=== PATIENT | female | born 1950 | race Caucasian/White ===

== ENCOUNTER 2021-08-09 17:51 | Inpatient (IN) | payer MEDICARE, SELFPAY ==
--- NOTE | 2021-08-09 17:56 | XRR_ITS ---
PROCEDURE INFORMATION: Exam: XR Left Femur Exam date and time: 08/09/2021 5:56 PM Age: 70 years old Clinical indication: Injury or trauma; Fall; Blunt trauma; Injury date: 08/09/2021; Patient HX: Left hip deformity; Additional info: Deformity/pain/trauma TECHNIQUE: Imaging protocol: XR Left femur. Views: 2 views. COMPARISON: No relevant prior studies available. FINDINGS: Bones/joints: Proximal femoral diaphysis subtrochanteric fracture with some overlap of the fracture fragments and angulation along with some sclerosis, prominent trabeculation and mild periosteal reaction of the underlying femur, possibly reflecting underlying Paget's disease or metastatic disease. Soft tissues: Unremarkable. XR/XR femur LT min 2V* [id number] IMPRESSION: Proximal femoral diaphysis subtrochanteric fracture with some overlap of the fracture fragments and angulation along with some sclerosis, prominent trabeculation and mild periosteal reaction of the underlying femur, possibly reflecting underlying Paget's disease or metastatic disease.
--- NOTE | 2021-08-09 17:56 | XRR_ITS ---
PROCEDURE INFORMATION: Exam: XR Chest Exam date and time: 08/09/2021 5:56 PM Age: 70 years old Clinical indication: Smoker's cough; Patient HX: HX breast cancer; Additional info: Dyspnea/cough TECHNIQUE: Imaging protocol: XR of the chest. Views: 1 view. COMPARISON: No relevant prior studies available. FINDINGS: Lungs: Unremarkable. No consolidation. Pleural spaces: Unremarkable. No pleural effusion. No pneumothorax. Heart/Mediastinum: Cardiomegaly. Bones/joints: Unremarkable. Soft tissues: Right axillary surgical clips. XR/XR chest 1V portable [id number] IMPRESSION: 1. Negative for infiltrate 2. Cardiomegaly. 3. Right axillary surgical clips.
--- NOTE | 2021-08-09 17:56 | ECG_ITS ---
[facility] Test Date: 2021-08-09 Pat Name: Cira Barney Department: Room: Gender: Female Generator Man: : 1950 Requested By: Micheal Guy Order Number: [id number] Reading MD: CHRISTINA CHRISTIE Measurements Intervals [place] Rate: 68 P: 49 MT: 144 QRS: -23 QRSD: 71 T: 9 QT: 393 QTc: 419 Interpretive Statements SINUS RHYTHM BORDERLINE LEFT AXIS DEVIATION [QRS AXIS < -20] POSSIBLE RIGHT VENTRICULAR CONDUCTION DELAY [RSR (QR) IN V1/V2] MODERATE VOLTAGE CRITERIA FOR LVH, CONSIDER NORMAL VARIANT [MEETS CRITERIA IN ONE OF: R(aVL), S(V1), R(V5), R(V5/V6)+S(V1)] No previous ECG available for comparison Electronically Signed On 08-09-2021 20:02:34 CDT by CHRISTINA CHRISTIE [id number]
--- NOTE | 2021-08-09 17:56 | XRR_ITS ---
PROCEDURE INFORMATION: Exam: XR Pelvis Exam date and time: 08/09/2021 5:56 PM Age: 70 years old Clinical indication: Injury or trauma; Blunt trauma (contusions or hematomas); Left; Hip; Injury date: 08/09/2021; Injury details: Fall today; Additional info: Pain/fall TECHNIQUE: Imaging protocol: XR pelvis. Views: 1 or 2 view. COMPARISON: No relevant prior studies available. FINDINGS: Bones/joints: Left proximal femoral diaphysis sub trochanter fracture with angulation and approximately 1 quarter shaft displacement. The underlying left femur appears somewhat sclerotic with some periosteal reaction and trabecular thickening, perhaps reflecting underlying Paget's disease, however, metastatic disease is not excluded. Soft tissues: Unremarkable. XR/XR pelvis 1-2V* [id number] IMPRESSION: Left proximal femoral diaphysis sub trochanter fracture with angulation and approximately 1 quarter shaft displacement. The underlying left femur appears somewhat sclerotic with some periosteal reaction and trabecular thickening, perhaps reflecting underlying Paget's disease, however, metastatic disease is not excluded.
--- NOTE | 2021-08-09 17:59 | ED_ITS ---
Documented by User: Micheal Keen DO 08/11/21 16:59 HPI - Fall General: Chief Complaint: Fall Stated Complaint: POSSIBLE HIP FRACTURE Time Seen by Provider: 08/09/21 17:52 History of Present Illness: HPI Narrative: 70-year-old female who fell while at home she was stepping over an object lost her balance and fell on her left side she has an obvious deformity of the left proximal femur with significant shortening shortening and external rotation she denies any other injuries not strike her head did not lose consciousness. She not on any blood thinners. complaint: fall Onset (ago): minute(s) Fall from: standing Place fall occurred: home Loss of consciousness: None Prolonged down time: no Symptoms prior to fall: none Context: tripped/slipped Location of injury - extremities: Left: thigh Severity: severe Quality: sharp Associated symptoms-after fall: Denies abdominal pain, chest pain, confusion, difficulty walking, headache(s), hematuria, lightheadedness, neck pain, numbness, short of breath, vertigo or weakness Review of Systems Const: Denies: fever(s), chills, body aches, change in appetite, fatigue or malaise ENMT: Denies: throat pain, ear or mastoid pain, nasal discharge or nasal congestion Card: Denies: chest pain or lightheadedness Resp: Denies: dyspnea, productive cough or non-productive cough GI: Denies: abdominal pain : Denies: hematuria Musc: Denies: neck pain Skin/Breast: Denies: rash or pruritus Neuro: Denies: headache(s), difficulty walking, vertigo or confusion [facility] PFSH: Medical History (Updated 08/10/21 @ 16:22 by Armida Rosado MD) Breast cancer Physical Exam Const: COMMON NORMALS: no acute distress GENERAL APPEARANCE: cooperative and comfortable ORIENTATION/CONSCIOUSNESS: Yes awake, Yes oriented to person, Yes oriented to place and Yes oriented to time HENMT: COMMON NORMALS: normocephalic, atraumatic and hearing grossly normal bilaterally HEAD & SCALP: normocephalic and atraumatic Neck/C-Spine: COMMON NORMALS: no JVD Resp: COMMON NORMALS: normal respiratory effort, No retractions, No use of accessory muscles and clear to auscultation bilaterally AUSCULTATION: clear to auscultation bilaterally Cardio: COMMON NORMALS: no JVD, regular rate, regular rhythm and No murmurs present (Cardio) RATE: regular rate RHYTHM: regular rhythm GI: COMMON NORMALS: Soft to palpation and No hepatosplenomegaly present AUSCULTATION: Yes normoactive bowel sounds PALPATION: Yes Soft to palpation, No Tenderness to palpation present (GI), No Guarding due to palpation present (GI) and Yes No hepatosplenomegaly present Extremity: COMMON NORMALS: normal to inspection, capillary refill normal, no clubbing, cyanosis or edema, no calf tenderness and no pedal edema OTHER: Obvious deformity left femur with significant shortening of the left leg and external rotation. Appears to have a proximal humerus fracture. Neuro: SENSORIUM/ORIENTATION: Yes oriented to person, Yes oriented to place and Yes oriented to time Skin: COMMON NORMALS: no rashes or lesions noted GENERAL SKIN EXAM: no rashes or lesions noted Course Vital Signs: Vital signs: Vital Signs Temperature 97.9 F 08/11/21 15:28 Pulse Rate 86 08/11/21 15:28 Respiratory Rate 18 08/11/21 15:28 Blood Pressure 117/71 08/11/21 15:28 Pulse Oximetry 92 08/11/21 15:28 MDM - Fall MDM Narrative: Medical decision making narrative: Care turned over to Dr. Springer at change of shift see his note from diagnosis and disposition Lab Data: Labs: Lab Results 08/09/21 08/09/21 08/09/21 18:01 18:25 18:25 WBC 5.8 10^3/uL 10^3/ uL (4.0-10.0) RBC 4.17 10^6/uL 10^6 /uL (4.1-5.3) Hgb 13.0 g/dL g/dL (11.5-15.3) Hct 39.2 % % (37.0-47.0) MCV 94.0 fl fl (81-99) MCH 31.2 pg pg (28.0-34.0) MCHC 33.2 g/dL g/dL (30.0-36.0) RDW 13.8 % % (12.1-15.1) Plt Count 228 10^3/cmm 10^3 /cmm (130-400) MPV 11.2 fL H fL (7.4-10.4) Neut % (Auto) 65.9 % % Lymph % (Auto) 25.1 % % [place] % (Auto) 7.6 % % Eos % (Auto) 0.7 % % Baso % (Auto) 0.5 % % Neut # (Auto) 3.83 10^3/uL 10^3 /uL (1.8-7.7) Lymph # (Auto) 1.5 10^3/uL 10^3/ uL (0.8-4.8) [place] # (Auto) 0.4 10^3/uL 10^3/ uL (0.2-0.9) Eos # (Auto) 0.0 10^3/uL 10^3/ uL (0.0-0.8) Baso # (Auto) 0.0 10^3/uL 10^3/ uL (0.0-0.1) Nucleated RBC % (a uto) 0 % % Nucleated RBCs # 0.0 /100WBC /100W BC PT INR APTT Sodium 137 mmol/L mmol/L (136-145) Potassium 4.6 mmol/L mmol/L (3.5-5.1) Chloride 101 mmol/L mmol/L (98-107) Carbon Dioxide 27 mmol/L mmol/L (22-29) Anion Gap 13.6 (5-19) BUN 21 mg/dL mg/dL (8-23) Creatinine 0.6 mg/dL mg/dL (0.5-0.9) GFR Calculation Not Reportable Glucose 107 mg/dL mg/dL (65-115) Calculated Osmolal ity 287 mOsm/kg mOsm/ kg (285-295) Calcium 8.7 mg/dL mg/dL (8.5-10.5) Total Bilirubin 0.3 mg/dL mg/dL (0.15-1.2) AST 28 U/L U/L (0-32) ALT 11 U/L U/L (0-33) Alkaline Phosphata se 97 IU/L IU/L (35-105) Total Protein 6.5 g/dL L g/dL (6.6-8.7) Albumin 3.8 g/dL g/dL (3.5-5.2) Globulin 2.7 g/dL g/dL (1.3-4.6) Urine Color Yellow (Yellow) Urine Appearance Hazy A (CLEAR) Urine pH 7 (5-7) Ur Specific Gravit y 1.010 (1.005-1.030) Urine Protein Neg (Negative) Urine Glucose (UA) Norm (Normal) Urine Ketones 1+ H (Negative) Urine Blood Neg (Negative) Urine Nitrate Negative (Negative) Urine Bilirubin Neg (Negative) Urine Urobilinogen 1 mg/dL H mg/dL (Negative) Ur Leukocyte Afshan ase Negative (Negative) Urine RBC 0-4 /hpf H /hpf (0-2) Urine WBC 0-4 /hpf H /hpf (0-5) Ur Squamous Epith Cells 0-4 /hpf H /hpf (0-5) Ur Transition Epit h Cell 0-4 /hpf /hpf Amorphous Sediment 1+ /hpf /hpf Urine Bacteria Trace /hpf /hpf (NONE) Urine Mucus 1+ /hpf /hpf 08/09/21 18:25 WBC RBC Hgb Hct MCV MCH MCHC RDW Plt Count MPV Neut % (Auto) Lymph % (Auto) [place] % (Auto) Eos % (Auto) Baso % (Auto) Neut # (Auto) Lymph # (Auto) [place] # (Auto) Eos # (Auto) Baso # (Auto) Nucleated RBC % (a uto) Nucleated RBCs # PT 12.70 SECONDS SEC ONDS (12.1-14.9) INR 0.93 (0.8-1.2) APTT 27.8 SECONDS SECO NDS (23.9-36.7) Sodium Potassium Chloride Carbon Dioxide Anion Gap BUN Creatinine GFR Calculation Glucose Calculated Osmolal ity Calcium Total Bilirubin AST ALT Alkaline Phosphata se Total Protein Albumin Globulin Urine Color Urine Appearance Urine pH Ur Specific Gravit y Urine Protein Urine Glucose (UA) Urine Ketones Urine Blood Urine Nitrate Urine Bilirubin Urine Urobilinogen Ur Leukocyte Afshan ase Urine RBC Urine WBC Ur Squamous Epith Cells Ur Transition Epit h Cell Amorphous Sediment Urine Bacteria Urine Mucus Discharge Plan Discharge Patient Disposition: Admitted As Inpatient Admit Provider: Agnes Pagan Clinical Impression: Fracture, proximal femur Condition: Stable Discharge Diet: Advance as tolerated Sign Out Sign Out Data: Patient Sign Out occurred on 08/09/21 at 18:16. Patient's care was discussed, and care was transferred from to Je Springer MD. Coding Level of Care Code ED Campaign Worker for Chg Fwd Exam Comprehensive Documented by User: Je Springer MD 08/10/21 05:18 HPI - Fall General: Chief Complaint: Fall Stated Complaint: POSSIBLE HIP FRACTURE Time Seen by Provider: 08/09/21 17:52 PFSH ED PFSH: Medical History (Updated 08/10/21 @ 16:22 by Armida Rosado MD) Breast cancer Course Vital Signs: Vital signs: Vital Signs Temperature 97.9 F 08/11/21 15:28 Pulse Rate 86 08/11/21 15:28 Respiratory Rate 18 08/11/21 15:28 Blood Pressure 117/71 08/11/21 15:28 Pulse Oximetry 92 08/11/21 15:28 MDM - Fall MDM Narrative: Medical decision making narrative: 70F presents the emergency room after an episode of fall with left thigh swelling deformity. Neurovascular exam intact. Facial proximal femur fracture. Case was discussed with Dr. Griffith plans for admission and possible surgery. Disposition: Admission Lab Data: Labs: Lab Results 08/09/21 08/09/21 08/09/21 18:01 18:25 18:25 WBC 5.8 10^3/uL 10^3/ uL (4.0-10.0) RBC 4.17 10^6/uL 10^6 /uL (4.1-5.3) Hgb 13.0 g/dL g/dL (11.5-15.3) Hct 39.2 % % (37.0-47.0) MCV 94.0 fl fl (81-99) MCH 31.2 pg pg (28.0-34.0) MCHC 33.2 g/dL g/dL (30.0-36.0) RDW 13.8 % % (12.1-15.1) Plt Count 228 10^3/cmm 10^3 /cmm (130-400) MPV 11.2 fL H fL (7.4-10.4) Neut % (Auto) 65.9 % % Lymph % (Auto) 25.1 % % [place] % (Auto) 7.6 % % Eos % (Auto) 0.7 % % Baso % (Auto) 0.5 % % Neut # (Auto) 3.83 10^3/uL 10^3 /uL (1.8-7.7) Lymph # (Auto) 1.5 10^3/uL 10^3/ uL (0.8-4.8) [place] # (Auto) 0.4 10^3/uL 10^3/ uL (0.2-0.9) Eos # (Auto) 0.0 10^3/uL 10^3/ uL (0.0-0.8) Baso # (Auto) 0.0 10^3/uL 10^3/ uL (0.0-0.1) Nucleated RBC % (a uto) 0 % % Nucleated RBCs # 0.0 /100WBC /100W BC PT INR APTT Sodium 137 mmol/L mmol/L (136-145) Potassium 4.6 mmol/L mmol/L (3.5-5.1) Chloride 101 mmol/L mmol/L (98-107) Carbon Dioxide 27 mmol/L mmol/L (22-29) Anion Gap 13.6 (5-19) BUN 21 mg/dL mg/dL (8-23) Creatinine 0.6 mg/dL mg/dL (0.5-0.9) GFR Calculation Not Reportable Glucose 107 mg/dL mg/dL (65-115) Calculated Osmolal ity 287 mOsm/kg mOsm/ kg (285-295) Calcium 8.7 mg/dL mg/dL (8.5-10.5) Total Bilirubin 0.3 mg/dL mg/dL (0.15-1.2) AST 28 U/L U/L (0-32) ALT 11 U/L U/L (0-33) Alkaline Phosphata se 97 IU/L IU/L (35-105) Total Protein 6.5 g/dL L g/dL (6.6-8.7) Albumin 3.8 g/dL g/dL (3.5-5.2) Globulin 2.7 g/dL g/dL (1.3-4.6) Urine Color Yellow (Yellow) Urine Appearance Hazy A (CLEAR) Urine pH 7 (5-7) Ur Specific Gravit y 1.010 (1.005-1.030) Urine Protein Neg (Negative) Urine Glucose (UA) Norm (Normal) Urine Ketones 1+ H (Negative) Urine Blood Neg (Negative) Urine Nitrate Negative (Negative) Urine Bilirubin Neg (Negative) Urine Urobilinogen 1 mg/dL H mg/dL (Negative) Ur Leukocyte Afshan ase Negative (Negative) Urine RBC 0-4 /hpf H /hpf (0-2) Urine WBC 0-4 /hpf H /hpf (0-5) Ur Squamous Epith Cells 0-4 /hpf H /hpf (0-5) Ur Transition Epit h Cell 0-4 /hpf /hpf Amorphous Sediment 1+ /hpf /hpf Urine Bacteria Trace /hpf /hpf (NONE) Urine Mucus 1+ /hpf /hpf 08/09/21 18:25 WBC RBC Hgb Hct MCV MCH MCHC RDW Plt Count MPV Neut % (Auto) Lymph % (Auto) [place] % (Auto) Eos % (Auto) Baso % (Auto) Neut # (Auto) Lymph # (Auto) [place] # (Auto) Eos # (Auto) Baso # (Auto) Nucleated RBC % (a uto) Nucleated RBCs # PT 12.70 SECONDS SEC ONDS (12.1-14.9) INR 0.93 (0.8-1.2) APTT 27.8 SECONDS SECO NDS (23.9-36.7) Sodium Potassium Chloride Carbon Dioxide Anion Gap BUN Creatinine GFR Calculation Glucose Calculated Osmolal ity Calcium Total Bilirubin AST ALT Alkaline Phosphata se Total Protein Albumin Globulin Urine Color Urine Appearance Urine pH Ur Specific Gravit y Urine Protein Urine Glucose (UA) Urine Ketones Urine Blood Urine Nitrate Urine Bilirubin Urine Urobilinogen Ur Leukocyte Afshan ase Urine RBC Urine WBC Ur Squamous Epith Cells Ur Transition Epit h Cell Amorphous Sediment Urine Bacteria Urine Mucus Imaging Data^: Other Imaging: Radiologist's impression: [address] [id number] ReportSigned Patient: Kevyn Barney #: [id number]: [id number]#:[id number]/Sex: 70 / FADM Date: 08/09/21Loc: ERRoom/Bed:Attending Dr: Ordering Provider/Ordering MD: Micheal Keen DO Date of Service: 08/09/21 Procedure(s): XR pelvis 1-2V* 28884 Accession Number(s): [id number] Report Number: [id number] PROCEDURE INFORMATION: Exam: XR Pelvis Exam date and time: 08/09/2021 5:56 PM Age: 70 years old Clinical indication: Injury or trauma; Blunt trauma (contusions or hematomas); Left; Hip; Injury date: 08/09/2021; Injury details: Fall today; Additional info: Pain/fall TECHNIQUE: Imaging protocol: XR pelvis. Views: 1 or 2 view. COMPARISON: No relevant prior studies available. FINDINGS: Bones/joints: Left proximal femoral diaphysis sub trochanter fracture with angulation and approximately 1 quarter shaft displacement. The underlying left femur appears somewhat sclerotic with some periosteal reaction and trabecular thickening, perhaps reflecting underlying Paget's disease, however, metastatic disease is not excluded. Soft tissues: Unremarkable. XR/XR pelvis 1-2V* 58408 IMPRESSION: Left proximal femoral diaphysis sub trochanter fracture with angulation and approximately 1 quarter shaft displacement. The underlying left femur appears somewhat sclerotic with some periosteal reaction and trabecular thickening, perhaps reflecting underlying Paget's disease, however, metastatic disease is not excluded. Dictated By:Gavin Harden MDSigned By:Gavin Harden MDSigned Date/Time:08/09/211844DD/ [address] [address]XLxl ReportSigned Patient: Kevyn Barney #: [id number]: 1950cct#:[id number]/Sex: 70 / FADM Date: 08/09/21Loc: ERRoom/Bed:Attending Dr: Ordering Provider/Ordering MD: Micheal Keen DO Date of Service: 08/09/21 Procedure(s): XR femur LT min 2V* [id number] Accession Number(s): [id number] Report Number: [id number] PROCEDURE INFORMATION: Exam: XR Left Femur Exam date and time: 08/09/2021 5:56 PM Age: 70 years old Clinical indication: Injury or trauma; Fall; Blunt trauma; Injury date: 08/09/2021; Patient HX: Left hip deformity; Additional info: Deformity/pain/trauma TECHNIQUE: Imaging protocol: XR Left femur. Views: 2 views. COMPARISON: No relevant prior studies available. FINDINGS: Bones/joints: Proximal femoral diaphysis subtrochanteric fracture with some overlap of the fracture fragments and angulation along with some sclerosis, prominent trabeculation and mild periosteal reaction of the underlying femur, possibly reflecting underlying Paget's disease or metastatic disease. Soft tissues: Unremarkable. XR/XR femur LT min 2V* [id number] IMPRESSION: Proximal femoral diaphysis subtrochanteric fracture with some overlap of the fracture fragments and angulation along with some sclerosis, prominent trabeculation and mild periosteal reaction of the underlying femur, possibly reflecting underlying Paget's disease or metastatic disease. Dictated By:Gavin Harden MDSigned By:Gavin Harden MDSigned Date/Time:08/09/211846DD/ [address] [address]DDki ReportSigned Patient: Kevyn Barney #: [id number]: 1950cct#:[id number]/Sex: 70 / FADM Date: 08/09/21Loc: ERRoom/Bed:At [facility] Dr: Ordering Provider/Ordering MD: Micheal Keen DO Date of Service: 08/09/21 Procedure(s): XR chest 1V portable [id number] Accession Number(s): [id number] Report Number: [id number] PROCEDURE INFORMATION: Exam: XR Chest Exam date and time: 08/09/2021 5:56 PM Age: 70 years old Clinical indication: Smoker's cough; Patient HX: HX breast cancer; Additional info: Dyspnea/cough TECHNIQUE: Imaging protocol: XR of the chest. Views: 1 view. COMPARISON: No relevant prior studies available. FINDINGS: Lungs: Unremarkable. No consolidation. Pleural spaces: Unremarkable. No pleural effusion. No pneumothorax. Heart/Mediastinum: Cardiomegaly. Bones/joints: Unremarkable. Soft tissues: Right axillary surgical clips. XR/XR chest 1V portable [id number] IMPRESSION: 1. Negative for infiltrate 2. Cardiomegaly. 3. Right axillary surgical clips. Dictated By:Gavin Harden MDSigned By:Gavin Harden MDSigned Date/Time:08/09/211845DD/ 44 Discharge Plan Discharge Patient Disposition: Admitted As Inpatient Admit Provider: Agnes Pagan Clinical Impression: Fracture, proximal femur Condition: Stable Discharge Diet: Advance as tolerated Sign Out Sign Out Data: Patient Sign Out occurred on 08/09/21 at 18:16. Patient's care was discussed, and care was transferred from to Je Springer MD. Coding Level of Care Code ED Campaign Worker for Chg Fwd Exam Comprehensive
[2021-08-09 18:00] VITALS: BP 151/74; PULSE 71; RESP 18; TEMP 37.2; O2SAT 96; BMI 22.4
[2021-08-09 18:32] LABS: Basophils % 0.5 %; Eosinophils % 0.7 %; Hematocrit 39.2 % (37.0-47.0); Lymphocytes # 1.5 10^3/uL (0.8-4.8); Lymphocytes % 25.1 %; Mean Corpuscular HGB Conc 33.2 g/dL (30.0-36.0); Mean Corpuscular Hemoglobin 31.2 pg (28.0-34.0); Mean Platelet Volume 11.2 fL (7.4-10.4); Monocytes # 0.4 10^3/uL (0.2-0.9); Monocytes % 7.6 %; Neutrophils # 3.83 10^3/uL (1.8-7.7); Neutrophils % 65.9 %; Nucleated Red Blood Cells % 0 %; Platelet Count 228 10^3/cmm (130-400); Red Blood Count 4.17 10^6/uL (4.1-5.3); Red Cell Distribution Width 13.8 % (12.1-15.1); White Blood Count 5.8 10^3/uL (4.0-10.0)
[2021-08-09 18:59] VITALS: BP 151/74
[2021-08-09 19:03] LABS: Alanine Aminotransferase 11 U/L (0-33); Albumin Level 3.8 g/dL (3.5-5.2); Alkaline Phosphatase 97 IU/L (35-105); Blood Urea Nitrogen 21 mg/dL (8-23); Calcium 8.7 mg/dL (8.5-10.5); Carbon Dioxide 27 mmol/L (22-29); Chloride 101 mmol/L (98-107); Globulin 2.7 g/dL (1.3-4.6); Glucose 107 mg/dL (65-115); Osmolality Calculated 287 mOsm/kg (285-295); Sodium 137 mmol/L (136-145); Total Bilirubin 0.3 mg/dL (0.15-1.2); Total Protein 6.5 g/dL (6.6-8.7)
[2021-08-09 19:05] LABS: Anion Gap 13.6 (5-19); Aspartate Amino Transferase 28 U/L (0-32); Potassium 4.6 mmol/L (3.5-5.1)
[2021-08-09 19:07] VITALS: RESP 97
[2021-08-09] MEDS: morphine 4 mg/mL SDV 1 mL IVP (19:07)
[2021-08-09 19:18] LABS: Urine Appearance Hazy (CLEAR); Urine Color Yellow (Yellow)
[2021-08-09 19:19] LABS: Add Urine Microscopic? YES; Bilirubin Urine Neg (Negative); Blood Urine Neg (Negative); Glucose Urine UA Norm (Normal); Ketones Urine 1+ (Negative); Leukocyte Esterase Urine Negative (Negative); Nitrate Urine Negative (Negative); Protein Urine Neg (Negative); RBC Urine 0-4 /hpf (0-2); Squamous Epithelial Cell Urine 0-4 /hpf (0-5); Transitional Epi Cells Urine 0-4 /hpf; Urobilinogen Urine 1 mg/dL (Negative); WBC Urine 0-4 /hpf (0-5); pH Urine 7 (5-7)
[2021-08-09 19:20] LABS: Add Urine Culture? No; Amorphous Sediment Urine 1+ /hpf; Bacteria Urine TRACE /hpf; Mucus Urine 1+ /hpf
--- NOTE | 2021-08-09 19:30 | ECG_ITS ---
[facility] Test Date: 2021-08-09 Pat Name: Cira Barney Department: Room: 253 Gender: Female Invas Tech: : 1950 Requested By: Je Springer Order Number: [id number] Celsa MD: Elisabeth Galo M.D. Measurements Intervals [place] Rate: 64 P: 41 MI: 168 QRS: -23 QRSD: 84 T: -3 QT: 432 QTc: 448 Interpretive Statements SINUS RHYTHM BORDERLINE LEFT AXIS DEVIATION [QRS AXIS < -20] POSSIBLE RIGHT VENTRICULAR CONDUCTION DELAY [RSR (QR) IN V1/V2] VOLTAGE CRITERIA FOR LVH [MEETS CRITERIA IN ONE OF: R(aVL), S(V1), R(V5), R(V5/V6)+S(V1)] Compared to ECG 08/09/2021 18:37:28 No significant changes Electronically Signed On 08-10-2021 21:27:58 CDT by Elisabeth Galo M.D. [id number]
[2021-08-09 20:25] LABS: INR 0.93 (0.8-1.2)
[2021-08-09 20:28] LABS: Partial Thromboplastin Time 27.8 SECONDS (23.9-36.7)
[2021-08-09] MEDS: HYDROmorphone 1 mg/mL INJ 1 mL 0.5 MG IVP ×2 (20:40→21:30)
[2021-08-09 20:42] VITALS: BP 135/73; PULSE 73; RESP 19; O2SAT 96
[2021-08-09 21:54] VITALS: BP 141/76; PULSE 74; O2SAT 98
[2021-08-09] MEDS: ondansetron 2 mg/ML SDV 2 mL 4 MG IVP (22:28)
[2021-08-09 22:49] VITALS: BP 147/80; PULSE 62; RESP 18; TEMP 36.3; O2SAT 94
--- NOTE | 2021-08-09 23:32 | PC.NURSE ---
Pt arrived to unit at 2245 with granddaughter, Yokasta, at bedside. Requesting to be notified of any changes. Number [phone].
--- NOTE | 2021-08-09 23:46 | PM.HP ---
Providers/Chief Complaint Admitting Physician: Agnes Pagan Chief Complaint: POSSIBLE HIP FRACTURE History of Present Illness Cira Barney is a 70 year old female with past medical history of restless leg syndrome who fell after her leg gave way. Noted to have left lower extremity pain afterwards. No head trauma, no chest pain or dyspnea. no fever or chills. Found to have a left hip fx on arrival. Review of Systems General: Reports: 10 or more systems reviewed and unremarkable except in HPI and below Medications/Allergies Home Medications Medication Instructions Recorded Confirmed Last Taken Type ropinirole 0.5 mg 08/09/21 08/08/21 22:00 History Allergies Allergy/AdvReac Type Severity Reaction Status Date / Time No Known Drug Allergies Allergy Unknown Verified 08/09/21 22:51 Vitals/I&O/Wt Last Vital Signs Temp 97.4 F L 08/09/21 22:49 Pulse 62 08/09/21 22:49 Resp 18 08/09/21 22:49 BP 147/80 08/09/21 22:49 Pulse Ox 94 08/09/21 22:49 Weight last 48 hrs Weight 57.606 kg Physical Exam Narrative: EXAM NARRATIVE: General: Alert, awake HEENT: EOMI CVS: RRR CHEST ; non-labored respiration ABD soft,nt/nd Ext No edema Urinary Catheter Management^: [place]: Cath Placed During This Visit: no Data : 08/10/21 04:49 08/10/21 04:49 A&P Assessment and plan (1) Fracture, proximal femur: Ortho if avaiable Pain control NPO IVF AM labs No indication for further cardiac work up Status: Acute Attestations Medical Necessity Statement*: over 2 midnight stay in hospital for eval and treatment. Time Spent in Patient Care: Greater than 35 minutes (>than 50% of time spent in counselling and/or direct pt care on unit). Coding Level of Care Code Acute Customer Support Consultant for Davonte Caraballo Diagnoses Fracture, proximal femur S72.009A
[2021-08-10] VITALS (16 sets, daily range): BP systolic 119–144; BP diastolic 63–85; PULSE 65–107; RESP 16–20; TEMP 35.5–37.4; O2SAT 92–98
--- NOTE | 2021-08-10 | XR_ITS ---
WS: [id number] Exam: XR femur LT min 2V* [id number] Date/Time of Exam: 08/10/2021 12:00 AM Reason For Exam: gamma nail There is internal orthopedic fixation involving a transverse fracture through the subtrochanteric reg ion of the left femur. An intramedullary skyler and femoral neck screw stabilize the fracture in the sat isfactory position for healing. Postoperative changes in the adjacent soft tissues. XR/XR femur LT min 2V* 57060 IMPRESSION: 1. Satisfactory ORIF involving a subtrochanteric fracture of the left femur.
--- NOTE | 2021-08-10 | SCC_ITS ---
Procedure Done: Open reduction and internal fixation left proximal femur with intramedullary device 75.2 seconds of fluoroscopic guidance, for a cumulative dose of 7.31 mGy, was provided to Dr. Ortiz by the radiology department. C-arm images of the LEFT femur were saved for the patient's permanent record. [facility]
[2021-08-10] MEDS: sodium chloride 0.9% 1,000 ML 50 ML IV (02:58)
[2021-08-10] MEDS: morphine 4 mg/mL SDV 1 mL 2 MG IVP ×2 (03:52→08:08)
[2021-08-10 05:33] LABS: Basophils % 0.4 %; Hematocrit 37.7 % (37.0-47.0); Hemoglobin 12.1 g/dL (11.5-15.3); Lymphocytes # 1.4 10^3/uL (0.8-4.8); Lymphocytes % 19.6 %; Mean Corpuscular HGB Conc 32.1 g/dL (30.0-36.0); Mean Corpuscular Hemoglobin 30.6 pg (28.0-34.0); Mean Corpuscular Volume 95.4 fl (81-99); Mean Platelet Volume 11.6 fL (7.4-10.4); Monocytes # 0.5 10^3/uL (0.2-0.9); Neutrophils # 5.21 10^3/uL (1.8-7.7); Neutrophils % 72.7 %; Nucleated Red Blood Cells % 0 %; Platelet Count 203 10^3/cmm (130-400); Red Blood Count 3.95 10^6/uL (4.1-5.3); Red Cell Distribution Width 13.7 % (12.1-15.1); White Blood Count 7.2 10^3/uL (4.0-10.0)
[2021-08-10 05:50] LABS: Alanine Aminotransferase 9 U/L (0-33); Albumin Level 3.5 g/dL (3.5-5.2); Alkaline Phosphatase 88 IU/L (35-105); Anion Gap 12.4 (5-19); Aspartate Amino Transferase 24 U/L (0-32); Blood Urea Nitrogen 20 mg/dL (8-23); Calcium 8.7 mg/dL (8.5-10.5); Carbon Dioxide 26 mmol/L (22-29); Chloride 102 mmol/L (98-107); Globulin 2.2 g/dL (1.3-4.6); Glucose 112 mg/dL (65-115); Osmolality Calculated 285 mOsm/kg (285-295); Potassium 4.4 mmol/L (3.5-5.1); Sodium 136 mmol/L (136-145); Total Bilirubin 0.4 mg/dL (0.15-1.2); Total Protein 5.7 g/dL (6.6-8.7)
[2021-08-10] MEDS: acetaminophen 325 mg Tablet 650 MG PO (06:28)
--- NOTE | 2021-08-10 07:59 | P.PN_ITS ---
Subjective Subjective: Interval history: Patient was seen and examined this morning in presence of her granddaughter. She reports history of weight loss in the last 2 to 3 months. She has lost around 30 pounds. There is also a history of hemorrhoids that she reports. She has a history of breast cancer 20 years ago which was treated with a lumpectomy radiation and chemo. She considers herself healthy and does not take any medications. She denies having a DEXA bone scan recently. He states he was supposed to have a colonoscopy since he had developed some GI issues but it was delayed due to Covid. She also states that she has been tired lately. 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 She went there after a long time for 2 3 hours yesterday when she experienced weakness and states her leg gave out and she fell. She presented to the ER with a hip fracture. She does have a primary care physician Masoud Aleman in couple months already. She denies blood in the stool, abdominal pain, chest pain, shortness of breath. She denies smoking and denies alcohol use or any other illicit drug use. Patient was interviewed in presence of Dr. Ortiz orthopedic surgeon. She will be going for orthopedic surgery today. Vitals/I&O/Wt Last Vital Signs Temp 96 F L 08/10/21 06:00 Pulse 73 08/10/21 06:00 Resp 16 08/10/21 06:00 BP 121/73 08/10/21 06:00 Pulse Ox 98 08/10/21 06:00 08/09/21 08/10/21 08/10/21 22:59 06:59 14:59 Output Total 400 / 400 Balance -400 / -400 Weight last 48 hrs Weight 57.606 kg Physical Exam Narrative: EXAM NARRATIVE: General: Alert oriented x3, patient seen laying in bed, granddaughter present at bedside. Frail-appearing elderly female appearing cachectic. HEENT: Normocephalic, atraumatic, EOMI, Cardio: Regular rate rhythm, normal S1-S2, no murmurs rubs gallops, Respiratory: Good bilateral air entry, no wheezes no rhonchi appreciated GI: Abdomen soft, nontender, nondistended, bowel sounds + Behavior: Appropriate and cooperative Extremities: Pulses 2+, no edema, no cyanosis. Left leg externally rotated and shortened. Overall physical exam was a little bit limited secondary to her leg pain. Urinary Catheter Management^: Randolph: Cath Placed During This Visit: no Reason for Continuing Indwelling Catheter: Required Immobilization for Trauma or Surgery or Anesthesia Data : 08/10/21 04:49 08/10/21 04:49 A&P Assessment and plan (1) Pathological fracture, left femur, initial encounter for fracture: Patient presented with what seems to be a pathologic fracture. She also reports weight loss in last 6 months and lost 30 pounds. He has a history of breast cancer status post chemoradiation and lumpectomy. Surgery will be sending bone specimen for pathology, report pending Check vitamin D Check vitamin B12 Check iron We will do CT chest abdomen pelvis postop Will await pathology report Pain management We will check FOBT Cefazolin 2 g IV every 8 hours DVT prophylaxis: Lovenox 40 daily Fluids: Normal saline 100 cc/h Electrolytes: Replete as needed Nutrition: N.p.o. for surgery Activity: Bedrest for now Status: Acute (2) External hemorrhoids without complication: Status: Acute (3) Fatigue: Status: Acute (4) Weight loss, unintentional: Status: Acute Attestations Medical Necessity Statement*: Will be going for ORIF surgery today. Time Spent in Patient Care: 16 - 35 minutes Coding Level of Care Code Acute Business Machine Mechanic for Davonte Caraballo Diagnoses Pathological fracture, left femur, initial encounter for fracture M84.452A External hemorrhoids without complication K64.4 Fatigue R53.83 Weight loss, unintentional R63.4
--- NOTE | 2021-08-10 09:15 | PC.OT ---
OT EVALUATION ORDERS RECEIVED. AWAITING ORTHO CONSULT AND POSSIBLE SURGERY. WILL AWAIT NEW ORDERS.
--- NOTE | 2021-08-10 09:27 | P.CONIM_ITS ---
Providers/Reason For Consult Consulting Physician/Specialty*: Garrett Ortiz MD; orthopedic surgery Reason for Consult*: Pathologic fracture left femur Attending Physician: Armida Rosado MD Primary Care Provider: Alexandria Pearson History of Present Illness History of Present Illness Cira Barney is a 70 year old female who gives a history of pain in her left leg and was begun on ropinirole for restless leg syndrome. She states she attributed her leg pain to the. She alleges that she is always been very active. 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 She states that over the past 6 months he has been increasingly difficult per her. She states she feels fatigued and had approximately 30 pounds of weight loss. She states she was at the skating rink yesterday. She describes merely stepping on her leg feeling her leg give way and falling to the ground. She was seen in our emergency room and is admitted to medicine. Orthopedics is consulted for management of a pathological proximal femoral fracture. Meds/Allergies Home Medications and Allergies Home Medications Medication Instructions Recorded Confirmed Last Taken Type ropinirole 0.5 mg PO BEDTIME 08/09/21 08/10/21 08/08/21 22:00 History Allergies Allergy/AdvReac Type Severity Reaction Status Date / Time No Known Drug Allergies Allergy Unknown Verified 08/09/21 22:51 Current Medications Current Medications Generic Name Dose Route Start Last Admin Trade Name Freq PRN Reason Stop Dose Admin Acetaminophen 650 mg 08/10/21 02:40 08/10/21 06:28 Acetaminophen 325 Mg Tablet PO 650 mg Q6H PRN Administration Mild/Mod Pain Or Temp >/= 101 Sodium Chloride 1,000 mls @ 50 mls/hr 08/10/21 02:45 08/10/21 02:58 Sodium Chloride 0.9% IV 50 mls/hr .Q20H SOFYA Administration Morphine Sulfate 2 mg 08/09/21 23:23 08/10/21 08:08 Morphine 4 Mg/Ml Sdv 1 Ml IVP 2 mg Q4H PRN Administration SEVERE PAIN Pantoprazole Sodium 40 mg 08/10/21 09:00 08/10/21 08:[address] 40 Mg Tablet PO Not Given DAILY SOFYA Vitals/I&O/Wt Last Vital Signs Temp 99.0 F 08/10/21 09:15 Pulse 73 08/10/21 09:15 Resp 18 08/10/21 09:15 BP 119/68 08/10/21 09:15 Pulse Ox 92 08/10/21 09:15 08/09/21 08/10/21 08/10/21 22:59 06:59 14:59 Output Total 400 / 400 Balance -400 / -400 Weight last 48 hrs Weight 127 lb Physical Exam Narrative: EXAM NARRATIVE: The patient is seen at bedside with her granddaughter. She is alert and oriented to person place and time. She has clear shortenning of her left femur. She has a palpable left dorsalis pulse She will flex extend her left toes and Urinary Catheter Management^: Randolph: Cath Placed During This Visit: no Reason for Continuing Indwelling Catheter: Required Immobilization for Trauma or Surgery or Anesthesia Data Imaging^: Xray Ortho: My impression: I reviewed 2 views of the left femur and an AP of the pelvis. The patient has a transverse fracture of the left subtrochanteric femur. I can see no destructive processes of bone. A&P Assessment and plan (1) Pathological fracture, left femur, initial encounter for fracture: I discussed management of the fracture with the patient and her granddaughter who lives with her. The mechanism of injury is very low energy. She has a history of weight loss and easy fatigue progressing over the past 6 months. Certainly malignancy is of concern. I do not see any significant bony damage other than the fracture however this is of concern. I think her best option would be to proceed with fracture stabilization. I told them with open reduction internal fixation they should be able to be mobilized and resume ambulatory status. We can eliminate the problems associated with prolonged bed rest and would have better control of pain. Certainly there would be inherent risk with surgery. These would would include the risk of cardiac complications, stroke, infection, and even . I discussed risk of any orthopedic implant including nonunion, malunion, a component failure. I discussed the possible need for component removal. I discussed risk of deep venous thromboses and pulmonary emboli that are present with any treatment and the importance of DVT prophylaxis. With suspected malignancy certainly aggressive DVT prophylaxis would be warranted. The patient expressed good understanding of alternative treatments, seem to comprehend, and agrees to surgical intervention. Status: Acute Coding Level of Care Code Acute Architectural Wood Model Maker for Davonte Caraballo Diagnoses Pathological fracture, left femur, initial encounter for fracture M84.451K
--- NOTE | 2021-08-10 10:32 | PC.CHAP ---
Pastoral Care Encounter/Spiritual Assessment Type of Contact [] Declined rn clinical appeals visit [] Patient/Family/Request visit [] Outpatient visit [] Follow-up visit [] Physician referral [] Code/Alert [x] Routine visit [] Staff referral [] Actively dying [] Patient sleeping [] Family support [] [] Out of room [] Palliative care [] [] Receiving care in room [] Pre-surgical visit [] Trauma [] Long length of stay [] ICU visit [] Other: Relational/Emotional Strength [x] Patient feels connected with others/family/visitors/staff [] Distress [] Loneliness/isolation [] Abandonment Spirituality of Patient [x] Person of [place] [] Attends Evangelical of their [place] [x] Believes in Prayer [] Reads Bible or Holiness materials [x] There are Spiritual issues to be addressed Operator Automated Process Interventions [x] Prayer [x] Active listening [x] Non-anxious presence [x] Spiritual/emotional support [] Crisis/trauma care [] Spiritual counseling [] Bereavement support [] Provided bereavement packet [] Provided Bible/devotional materials [] Provided toy/stuffed animal, coloring book to patient or family member [] Provided Communion [] Anointing/[place] [] Salvation [x] Completed spiritual assessment [] Other: Impact on Illness or Injury [] Angry [] Fearful [] Anxious [] Often cries [] Exhaustion [] Unable to work [] Unable to attend oriental orthodox [] Unable to walk/stand [] Unable to read [] Unable to drive [] Unable to eat/drink [] Unable to sleep [] Unable to be with family [] Patient intubated [] Other: Summary patient in pain Time spent with patient 20 min
[2021-08-10] MEDS: sodium chloride 0.9% 1,000 ML 30 ML IV (11:01)
--- NOTE | 2021-08-10 12:22 | P.ANESASSM_ITS ---
Pre-Anesthetic Assessment Pre-Anesthetic Assessment: Height/Weight: Height 1.6 m Weight 57.606 kg Temp Pulse Resp BP Pulse Ox 98.5 F 65 18 130/63 95 08/10/21 10:50 08/10/21 10:50 08/10/21 10:50 08/10/21 10:50 08/10/21 10:50 Preop Diagnosis: hip fracture Proposed Procedure: Operation Date: 08/10/21 11:50 Proposed Procedures p Trochanteric Femoral Nail(Left) - Garrett Ortiz MD Familial anesthetic complications: None Was Beta Pieter taken within 24 hours: N/A Was Clonidine taken within 24 hours: N/A Last intake: Intake Last Liquid Date 08/09/21 Last Liquid Time 18:00 Last Solid Date 08/09/21 Last Solid Time 18:00 Social: Social History: No alcohol and No tobacco Exam: Pre-Anes Outpt Exam: alert, oriented x 3, clear to auscultation bilaterally and regular rate & rhythm Airway: Cervical ROM: WNL MP: 3 Dentition: False Pulmonary: Comments: covid in march Musc/skel: Comments: unexplained weight loss Anesthetic Plan: ASA status: 2 Anesthesia: General Risk of > 500 ml blood loss (7ml/kg in children): No Meds/Allergies Current Medications: Current Medications Generic Name Dose Route Start Last Admin Trade Name Freq PRN Reason Stop Dose Admin Acetaminophen 650 mg 08/10/21 02:40 08/10/21 06:28 Acetaminophen 32 5 Mg Tablet PO 650 mg Q6H PRN Administration Mild/Mod Pain Or Temp >/= 101 Sodium Chloride 1,000 mls @ 50 ml s/hr 08/10/21 02:45 08/10/21 02:58 Sodium Chloride 0.9% IV 50 mls/hr .Q20H SOFYA Administration Sodium Chloride 1,000 mls @ 30 ml s/hr 08/10/21 10:45 08/10/21 11:01 Sodium Chloride 0.9% IV 08/11/21 10:44 30 mls/hr .Q24H SOFYA Administration Morphine Sulfate 2 mg 08/09/21 23:23 08/10/21 08:08 Morphine 4 Mg/Ml Sdv 1 Ml IVP 2 mg Q4H PRN Administration SEVERE PAIN Pantoprazole Sodiu m 40 mg 08/10/21 09:00 08/10/21 08:[address] 40 Mg Tablet PO Not Given DAILY SOFYA Data Anesthesia CBC & Chem 7: 08/10/21 04:49 08/10/21 04:49 Other Labs: Laboratory Results - last 48 hr 08/09/21 08/09/21 08/09/21 18:01 18:25 18:25 WBC 5.8 RBC 4.17 Hgb 13.0 Hct 39.2 MCV 94.0 MCH 31.2 MCHC 33.2 RDW 13.8 Plt Count 228 MPV 11.2 H Neut % (Auto) 65.9 Lymph % (Auto) 25.1 [place] % (Auto) 7.6 Eos % (Auto) 0.7 Baso % (Auto) 0.5 Neut # (Auto) 3.83 Lymph # (Auto) 1.5 [place] # (Auto) 0.4 Eos # (Auto) 0.0 Baso # (Auto) 0.0 Nucleated RBC % (auto) 0 Nucleated RBCs # 0.0 PT INR APTT Sodium 137 Potassium 4.6 Chloride 101 Carbon Dioxide 27 Anion Gap 13.6 BUN 21 Creatinine 0.6 GFR Calculation Not Reportable Glucose 107 Calculated Osmolality 287 Calcium 8.7 Total Bilirubin 0.3 AST 28 ALT 11 Alkaline Phosphatase 97 Total Protein 6.5 L Albumin 3.8 Globulin 2.7 Urine Color Yellow Urine Appearance Hazy A Urine pH 7 Ur Specific [place] 1.010 Urine Protein Neg Urine Glucose (UA) Norm Urine Ketones 1+ H Urine Blood Neg Urine Nitrate Negative Urine Bilirubin Neg Urine Urobilinogen 1 H Ur Leukocyte Esterase Negative Urine RBC 0-4 H Urine WBC 0-4 H Ur Squamous Epith Cells 0-4 H Ur Transition Epith Cell 0-4 Amorphous Sediment 1+ Urine Bacteria Trace Urine Mucus 1+ 08/09/21 08/10/21 08/10/21 18:25 04:49 04:49 WBC 7.2 RBC 3.95 L Hgb 12.1 Hct 37.7 MCV 95.4 MCH 30.6 MCHC 32.1 RDW 13.7 Plt Count 203 MPV 11.6 H Neut % (Auto) 72.7 Lymph % (Auto) 19.6 [place] % (Auto) 7.0 Eos % (Auto) 0.0 Baso % (Auto) 0.4 Neut # (Auto) 5.21 Lymph # (Auto) 1.4 [place] # (Auto) 0.5 Eos # (Auto) 0.0 Baso # (Auto) 0.0 Nucleated RBC % (auto) 0 Nucleated RBCs # 0.0 PT 12.70 INR 0.93 APTT 27.8 Sodium 136 Potassium 4.4 Chloride 102 Carbon Dioxide 26 Anion Gap 12.4 BUN 20 Creatinine 0.4 L GFR Calculation Not Reportable Glucose 112 Calculated Osmolality 285 Calcium 8.7 Total Bilirubin 0.4 AST 24 ALT 9 Alkaline Phosphatase 88 Total Protein 5.7 L Albumin 3.5 Globulin 2.2 Urine Color Urine Appearance Urine pH Ur Specific [place] Urine Protein Urine Glucose (UA) Urine Ketones Urine Blood Urine Nitrate Urine Bilirubin Urine Urobilinogen Ur Leukocyte Esterase Urine RBC Urine WBC Ur Squamous Epith Cells Ur Transition Epith Cell Amorphous Sediment Urine Bacteria Urine Mucus Cardiac Studies: No Data to Display
--- NOTE | 2021-08-10 13:45 | P.OP_ITS ---
Operative Report Date of procedure: August 10, 2021 Pre-op Diagnosis: Pathologic left subtrochanteric femur fracture Post-op Findings: Same Procedure Done: Open reduction and internal fixation left proximal femur with intramedullary device Biopsy left proximal femur Specimens removed/disposition: Curettage specimens from the fracture site of trabecular bone were sent for pathology Pathology: none sent Anesthesia: General Estimated blood loss (mL): 200 Complications: None Condition: stable Disposition: PACU Brief History: The patient is a 70-year-old female with progressive left leg pain and a pathologic fracture left proximal femur with minimal trauma. She had a history of 30 pound weight loss and fatigue over the past 6months. Preoperat luiz radiographs revealed a subtroches femur fracture. There was a patchy appearance to the proximal femur and some slight periosteal reaction worrisome for metastatic disease Procedure: The patient was taken to the operating room. They were given 1 g of Ancef. They were positioned on the fracture table with the right lower extremity in gentle traction. A timeout was performed. Initial attention was focused on obtaining a biopsy from the fracture site. Utilizing a scalpel blade an incision was made over the fracture site. Dissection was carried down with electrocautery through the fascia akira. The vastus lateralis muscle was divided bringing us to the area of fracture hematoma in the fracture sites. A curette was used to take several specimens of trabecular bone from the proximal and distal fragment. These were sent to pathology. A 2 cm long incision was made proximal to the greater trochanter scalpel blade. Dissection was carried down to tip the greater trochanter. A guidepin was passed manually from the tip of the trochanter down the shaft. The proximal reamer was utilized to open up the proximal canal. An 11 mm 340 Antonina gamma nail was passed down the canal without difficulty. Under visualization of fluoroscopy a guidepin was driven up into the head and neck at 125? angle. It was measured at 95 mm mm in length and a lag screw similar length was then placed and locked into place with the proximal locking screw. Intraoperative imaging was obtained verifying satisfactory position of the hardware and r eduction of the fracture. Deep fascial akira was closed with 0 Vicryl and subcutaneous tissues with 2-0 Vicryl.. The skin was closed with skin sarah. Sterile dressings were applied. The patient was extubated and taken to recovery room in stable condition.
[2021-08-10] MEDS: fentaNYL 50 mcg/mL INJ 2mL IVP ×2 (14:01→14:06)
[2021-08-10] MEDS: ondansetron 2 mg/ML SDV 2 mL 4 MG IVP (16:45)
--- NOTE | 2021-08-10 17:00 | ANE.PACU2 ---
Inpatient post-anesthesia follow up: Airway intact: Yes Vital signs: Temperature 99.4 F Pulse Rate [Left R adial] 71 Pulse Rate 98 Respiratory Rate 18 Blood Pressure [Le ft Arm] 151/74 Blood Pressure 146/73 Pulse Oximetry 94 Oxygen Delivery Me thod Room Air Oxygen Flow Rate 4 Fraction of Inspir ed Oxygen Hydration adequate: Yes Nausea and vomiting: No Pain level: 2 Mental status: Baseline
[2021-08-10] MEDS: HYDROcodone-acetaminophen 5-325 mg Tablet 1 TAB PO (18:16)
[2021-08-10] MEDS: sennosides-docusate Tablet 2 TAB PO (18:16)
[2021-08-10] MEDS: sodium chloride 0.9% 1,000 ML 100 ML IV (20:13)
[2021-08-10] MEDS: chlorhexidine gluconate 0.12% Btl 473 mL 30 ML MUCOUS MEM (20:14)
--- NOTE | 2021-08-10 20:22 | PC.NURSE ---
i reported high pulse 102 to nurse
[2021-08-11] VITALS: BP 130/78; PULSE 96; RESP 17; TEMP 37.2; O2SAT 97
[2021-08-11] MEDS: HYDROcodone-acetaminophen 5-325 mg Tablet 1 TAB PO ×4 (02:38→17:20)
[2021-08-11 04:00] VITALS: BP 135/79; PULSE 102; RESP 17; TEMP 37.2; O2SAT 92
--- NOTE | 2021-08-11 05:26 | PC.NURSE ---
i reported high pulse 102 to nurse
[2021-08-11 05:51] LABS: Basophils % 0.2 %; Eosinophils % 0.1 %; Hematocrit 37.5 % (37.0-47.0); Hemoglobin 12.3 g/dL (11.5-15.3); Lymphocytes # 0.9 10^3/uL (0.8-4.8); Lymphocytes % 9.8 %; Mean Corpuscular HGB Conc 32.8 g/dL (30.0-36.0); Mean Corpuscular Hemoglobin 30.9 pg (28.0-34.0); Mean Corpuscular Volume 94.2 fl (81-99); Mean Platelet Volume 11.4 fL (7.4-10.4); Monocytes # 0.4 10^3/uL (0.2-0.9); Neutrophils # 7.45 10^3/uL (1.8-7.7); Neutrophils % 84.8 %; Nucleated Red Blood Cells % 0 %; Platelet Count 200 10^3/cmm (130-400); Red Blood Count 3.98 10^6/uL (4.1-5.3); Red Cell Distribution Width 13.4 % (12.1-15.1); White Blood Count 8.8 10^3/uL (4.0-10.0)
[2021-08-11 06:14] LABS: Alanine Aminotransferase 13 U/L (0-33); Albumin Level 3.2 g/dL (3.5-5.2); Alkaline Phosphatase 86 IU/L (35-105); Anion Gap 14.8 (5-19); Aspartate Amino Transferase 40 U/L (0-32); Blood Urea Nitrogen 16 mg/dL (8-23); Calcium 8.1 mg/dL (8.5-10.5); Carbon Dioxide 22 mmol/L (22-29); Chloride 102 mmol/L (98-107); Globulin 2.4 g/dL (1.3-4.6); Glucose 108 mg/dL (65-115); Magnesium 1.6 mg/dL (1.7-2.3); Osmolality Calculated 282 mOsm/kg (285-295); Potassium 3.8 mmol/L (3.5-5.1); Sodium 135 mmol/L (136-145); Total Bilirubin 0.5 mg/dL (0.15-1.2); Total Protein 5.6 g/dL (6.6-8.7)
[2021-08-11] MEDS: sodium chloride 0.9% 1,000 ML 100 ML IV (06:45)
[2021-08-11 07:39] VITALS: BP 108/73; PULSE 92; RESP 16; TEMP 36.6; O2SAT 92
[2021-08-11] MEDS: sennosides-docusate Tablet 2 TAB PO ×2 (07:46→17:05)
[2021-08-11] MEDS: chlorhexidine gluconate 0.12% Btl 473 mL 30 ML MUCOUS MEM (07:49)
--- NOTE | 2021-08-11 07:56 | CT_ITS ---
WS: [id number] CT CHEST, ABDOMEN AND PELVIS WITH CONTRAST HISTORY: Presented with pathologic hip fracture. History of breast cancer. TECHNIQUE: Contiguous 5 mm axial imaging performed through the chest, abdomen and pelvis with IV cont rast, oral contrast has not been provided. Coronal and sagittal reformats chest. Coronal and sagittal reformats through the abdomen and pelvis. All CT scans at [facility] use at least one of the se dose optimization techniques: automated exposure control; mA and/or kV adjustment per patient size (includes targeted exams where dose is matched to clinical indication); or iterative reconstruction. CONTRAST: Omnipaque 300; 95 mL IV. DLP: 1030.09 mGy.cm COMPARISON: None available. Chest CT: Asymmetric RIGHT apical pleural thickening. This is most likely an area of fibrosis and sca rring. Interstitial thickening in the periphery of the RIGHT lung. No discrete nodule or mass. Mild d ependent changes at the lung bases. No mediastinal or hilar adenopathy. Mild atherosclerosis aorta an d ectasia. Normal size pulmonary artery. Mild enlargement of the heart. No pericardial or pleural eff usion. Large hiatal hernia. The stomach is nearly intrathoracic. Prior RIGHT axillary ellen dissectio n. Postsurgical changes and dystrophic calcifications in the RIGHT breast. Increase in thoracic kyphosis. No osteoblastic or osteolytic bone disease. Abdomen CT: Normal size liver. Hepatic steatosis along the falciform ligament. Negative gallbladder a nd spleen. Mild atrophy of the pancreas. No adrenal mass. Kidneys are normal with no obstruction. No ascites or adenopathy within the abdomen. No GI tract obstruction. There is moderate fecal retention. Pelvic CT: Uterus is retroverted. Endometrial thickening measuring up to 11 mm is abnormal. There is also decreased attenuation near the cervix. No free fluid or adnexal mass. Urinary bladder is minimal ly distended but does contain air. This may be from recent catheterization. Postsurgical changes are noted in the soft tissues of the LEFT pelvis and hip. Recent ORIF of the LEF T hip fracture. No additional destructive bone lesions. CT/CT chest abd pel w con* IMPRESSION: 1. RIGHT apical pleural thickening and scarring is probably fibrosis. 2. No adenopathy within the chest, abdomen or pelvis. 3. Prior RIGHT axillary ellen dissection and RIGHT breast lumpectomy. 4. Intrathoracic stomach, near complete. 5. No metastatic disease to the liver or adrenal glands. 6. Mild soft tissue anasarca. 7. Endometrial thickening and increased soft tissue near the endocervical junc tion. Consider follow-up ultrasound evaluation. Transvaginal imaging is highly recommended to exclude malignancy. 8. Postsurgical changes in the soft tissues over the LEFT hip and pelvis.
[2021-08-11] MEDS: iohexol 300 mg/mL 100 mL Btl IV (09:04)
[2021-08-11] MEDS: magnesium sulfate premix 4 GM/100 ML PREMIX IV (09:11)
[2021-08-11] MEDS: enoxaparin 40 mg/0.4 mL Syringe SUBCUT (09:22)
--- NOTE | 2021-08-11 09:42 | P.PN_ITS ---
Subjective Subjective: Interval history: No complaints of pain. Tolerating p.o. intake Vitals/I&O/Wt Last Vital Signs Temp 97.9 F 08/11/21 07:39 Pulse 92 08/11/21 07:39 Resp 16 08/11/21 07:39 BP 108/73 08/11/21 07:39 Pulse Ox 92 08/11/21 07:39 08/10/21 08/11/21 08/11/21 22:59 06:59 14:59 Intake Total 60 / 120 1300 / 1420 120 / 120 Output Total 400 / 750 Balance 60 / -230 900 / 670 120 / 120 Weight last 48 hrs Weight 127 lb Physical Exam Narrative: EXAM NARRATIVE: Left hip dressings free of drainage. Expected swelling left thigh Urinary Catheter Management^: Randolph: Cath Placed During This Visit: no Reason for Continuing Indwelling Catheter: Required Immobilization for Trauma or Surgery or Anesthesia Data : 08/11/21 05:23 08/11/21 05:23 A&P Assessment and plan (1) Pathological fracture, left femur, initial encounter for fracture: CT scans are complete. Awaiting bone biopsy results. Patient will be full weightbearing on left femur. Anticipate discharge tomorrow. Status: Acute Attestations Medical Necessity Statement*: Anticipate discharge home tomorrow as mobility improves. Coding Level of Care Code Acute Package Center Supervisor for Davonte Caraballo Diagnoses Pathological fracture, left femur, initial encounter for fracture M84.452A
--- NOTE | 2021-08-11 10:15 | PC.CHAP ---
Pastoral Care Encounter/Spiritual Assessment Type of Contact [] Declined brand advocate visit [] Patient/Family/Request visit [] Outpatient visit [] Follow-up visit [] Physician referral [] Code/Alert [x] Routine visit [] Staff referral [] Actively dying [] Patient sleeping [] Family support [] [] Out of room [] Palliative care [] [x] Receiving care in room [] Pre-surgical visit [] Trauma [] Long length of stay [] ICU visit [] Other: Relational/Emotional Strength [x] Patient feels connected with others/family/visitors/staff [] Distress [] Loneliness/isolation [] Abandonment Spirituality of Patient [x] Person of [place] [] Attends Hinduism of their [place] [x] Believes in Prayer [] Reads Bible or Samaritan materials [] There are Spiritual issues to be addressed Seo Assistant Interventions [x] Prayer [x] Active listening [x] Non-anxious presence [x] Spiritual/emotional support [] Crisis/trauma care [x] Spiritual counseling [] Bereavement support [] Provided bereavement packet [] Provided Bible/devotional materials [] Provided toy/stuffed animal, coloring book to patient or family member [] Provided Communion [] Anointing/[place] [] Salvation [x] Completed spiritual assessment [] Other: Impact on Illness or Injury [] Angry [] Fearful [x] Anxious [] Often cries [] Exhaustion [] Unable to work [] Unable to attend yarsanism [] Unable to walk/stand [] Unable to read [] Unable to drive [] Unable to eat/drink [] Unable to sleep [] Unable to be with family [] Patient intubated [] Other: Summary surgery pin hip in some pain going home soon has a good attitude Time spent with patient 10 mins
[2021-08-11 11:16] VITALS: BP 120/69; PULSE 94; RESP 16; TEMP 36.9; O2SAT 94
--- NOTE | 2021-08-11 11:40 | PM.PN ---
Subjective Subjective: Interval history: Seen and examined this morning. Patient states he feels well and is in less pain compared to yesterday. She is able to bear weight on her left leg at this time however feels sore and a little bit weak. Vitals/I&O/Wt Last Vital Signs Temp 98.5 F 08/11/21 11:16 Pulse 94 08/11/21 11:16 Resp 16 08/11/21 11:16 BP 120/69 08/11/21 11:16 Pulse Ox 94 08/11/21 11:16 08/10/21 08/11/21 08/11/21 22:59 06:59 14:59 Intake Total 60 / 120 1300 / 1420 120 / 120 Output Total 400 / 750 Balance 60 / -230 900 / 670 120 / 120 Weight last 48 hrs Weight 57.606 kg Physical Exam Narrative: EXAM NARRATIVE: General: Alert oriented x3, patient seen laying in bed, granddaughter present at bedside. Frail-appearing elderly female appearing cachectic. HEENT: Normocephalic, atraumatic, EOMI, Cardio: Regular rate rhythm, normal S1-S2, no murmurs rubs gallops, Respiratory: Good bilateral air entry, no wheezes no rhonchi appreciated GI: Abdomen soft, nontender, nondistended, bowel sounds + Behavior: Appropriate and cooperative Extremities: Pulses 2+, no edema, no cyanosis. Left leg externally rotated and shortened. Overall physical exam was a little bit limited secondary to her leg pain. Urinary Catheter Management^: Randolph: Cath Placed During This Visit: no Reason for Continuing Indwelling Catheter: Required Immobilization for Trauma or Surgery or Anesthesia Data : 08/11/21 05:23 08/11/21 05:23 A&P Assessment and plan (1) Pathological fracture, left femur, initial encounter for fracture: Patient presented with what seems to be a pathologic fracture. She also reports weight loss in last 6 months and lost 30 pounds. He has a history of breast cancer status post chemoradiation and lumpectomy. Surgery will be sending bone specimen for pathology, report pending Check vitamin D, B12 and iron. We will give her prescription at discharge to be done as an outpatient. CT chest abdomen pelvis shows endometrial thickening and increased soft tissue near the endocervical junction. Ultrasound and transvaginal imaging highly recommended to exclude malignancy. I will refer her to hand silvering supervisor at discharge for further work-up. Bone sample sent to pathology. Will await pathology report. Patient will follow up outpatient with her primary care physician. Pain management FOBT ordered Cefazolin 2 g IV every 8 hours. Last dose today. Discussed with Dr. Ortiz. We will place her on Eliquis 2.5 twice daily as DVT prophylaxis given her risk of malignancy and recent fracture repair. Plan for discharge tomorrow. DVT prophylaxis: Lovenox 40 daily Fluids: Normal saline 100 cc/h Electrolytes: Replete as needed Nutrition: N.p.o. for surgery Activity: Ambulation at will. Status: Acute (2) External hemorrhoids without complication: Status: Acute (3) Fatigue: Status: Acute (4) Weight loss, unintentional: Status: Acute Attestations Medical Necessity Statement*: Patient able to bear weight but is still in pain. Plan for discharge tomorrow. Time Spent in Patient Care: 16 - 35 minutes Coding Level of Care Code Acute Chair Post Machine Operator for [facility] Fwd Diagnoses Pathological fracture, left femur, initial encounter for fracture M84.452A External hemorrhoids without complication K64.4 Fatigue R53.83 Weight loss, unintentional R63.4
[2021-08-11 15:28] VITALS: BP 117/71; PULSE 86; RESP 18; TEMP 36.6; O2SAT 92
[2021-08-11 18:09] LABS: SARS Covid-2 Antigen Negative (Negative)
--- NOTE | 2021-08-11 19:10 | PC.NURSE ---
Report to on coming shirt
[2021-08-11 19:42] VITALS: BP 115/68; PULSE 103; RESP 17; TEMP 36.7; O2SAT 92
[2021-08-11] MEDS: apixaban 5 mg Tablet 2.5 MG PO (20:58)
[2021-08-12] VITALS: BP 132/73; PULSE 143; RESP 18; TEMP 37.7; O2SAT 97
[2021-08-12] MEDS: HYDROcodone-acetaminophen 5-325 mg Tablet 1 TAB PO ×2 (00:37→08:32)
[2021-08-12] MEDS: sodium chloride 0.9% 1,000 ML 100 ML IV (00:37)
[2021-08-12 04:00] VITALS: BP 130/73; PULSE 95; RESP 18; TEMP 37.2; O2SAT 91
[2021-08-12 05:42] LABS: Anion Gap 11.5 (5-19); Blood Urea Nitrogen 17 mg/dL (8-23); Carbon Dioxide 24 mmol/L (22-29); Chloride 99 mmol/L (98-107); Glucose 110 mg/dL (65-115); Osmolality Calculated 274 mOsm/kg (285-295); Potassium 3.5 mmol/L (3.5-5.1); Sodium 131 mmol/L (136-145)
[2021-08-12 05:50] LABS: Calcium 7.9 mg/dL (8.5-10.5)
--- NOTE | 2021-08-12 07:55 | PM.PN ---
Subjective Subjective: Interval history: Pain control adequate. Excellent progress with therapy. Vitals/I&O/Wt Last Vital Signs Temp 99.0 F 08/12/21 04:00 Pulse 95 08/12/21 04:00 Resp 18 08/12/21 04:00 BP 130/73 08/12/21 04:00 Pulse Ox 91 08/12/21 04:00 08/11/21 08/12/21 08/12/21 22:59 06:59 14:59 Intake Total 1377 / 1717 740 / 2457 Balance 1377 / 1717 740 / 2457 Physical Exam Narrative: EXAM NARRATIVE: Left hip incisions clean. Minimal swelling left thigh. Urinary Catheter Management^: Randolph: Cath Placed During This Visit: no Reason for Continuing Indwelling Catheter: Required Immobilization for Trauma or Surgery or Anesthesia Data : 08/11/21 05:23 08/12/21 05:10 A&P Assessment and plan (1) Pathological fracture, left femur, initial encounter for fracture: Final pathology will likely not be available until early next week. Patient set on discharge to [facility]. Her daughter works there. She will follow up with me in 2 weeks for staple removal. Status: Acute (2) Postoperative state: Status: Acute Attestations Medical Necessity Statement*: Okay for discharge per Ortho Coding Level of Care Code Acute First Officer for Davonte Caraballo Diagnoses Pathological fracture, left femur, initial encounter for fracture M84.452A Postoperative state Z98.890
[2021-08-12 08:00] VITALS: BP 146/73; PULSE 98; RESP 18; TEMP 37.4; O2SAT 94
[2021-08-12] MEDS: apixaban 5 mg Tablet 2.5 MG PO (08:21)
[2021-08-12] MEDS: sennosides-docusate Tablet 2 TAB PO (08:21)
[2021-08-12] MEDS: acetaminophen 325 mg Tablet 650 MG PO (08:21)
--- NOTE | 2021-08-12 08:38 | PC.NURSE ---
Dr. Rosado notified at this time of patient noted to have a temperature of 99.0 orally. Patient in no distress at this time. Denies any issues. New orders received to give PRN Tylenol and CBC labs at this time. Patient updated of new orders and concerns. Will continue to monitor.
[2021-08-12 08:58] LABS: Basophils % 0.2 %; Eosinophils # 0.1 10^3/uL (0.0-0.8); Eosinophils % 0.6 %; Hematocrit 35.8 % (37.0-47.0); Hemoglobin 11.9 g/dL (11.5-15.3); Lymphocytes # 1.2 10^3/uL (0.8-4.8); Mean Corpuscular HGB Conc 33.2 g/dL (30.0-36.0); Mean Corpuscular Hemoglobin 31.3 pg (28.0-34.0); Mean Corpuscular Volume 94.2 fl (81-99); Mean Platelet Volume 12.1 fL (7.4-10.4); Monocytes # 0.6 10^3/uL (0.2-0.9); Monocytes % 7.1 %; Neutrophils # 6.27 10^3/uL (1.8-7.7); Nucleated Red Blood Cells % 0 %; Platelet Count 203 10^3/cmm (130-400); Red Cell Distribution Width 13.7 % (12.1-15.1); White Blood Count 8.2 10^3/uL (4.0-10.0)
[2021-08-12] MEDS: mupirocin oint 22 gm 1 APPLIC NASAL (09:08)
[2021-08-12] MEDS: chlorhexidine gluconate 0.12% Btl 473 mL 30 ML MUCOUS MEM ×2 (09:08→12:33)
--- NOTE | 2021-08-12 10:45 | PC.SOCIAL ---
IMM updated with patient. Copy page 2 provided. Verbalized an understanding. Initialled, timed, dated, and placed in chart.
--- NOTE | 2021-08-12 11:14 | PC.NURSE ---
Called report to RN at [facility] at this time. No issues to report or noted. Awaiting [facility] transportation to come for patient. Granddaughter updated by this nurse at this time.
--- NOTE | 2021-08-12 13:09 | PM.DCS ---
Discharge Providers Date of Admission: 08/09/21 21:52 Date of Discharge: August 12, 2021 Attending Provider at Admission: Agnes Pagan Attending Provider at Discharge: Armida Rosado MD Primary Care Provider: Alexandria Pearson Diagnoses at Discharge Discharge Diagnosis (1) Pathological fracture, left femur, initial encounter for fracture: Status: Acute (2) Postoperative state: Status: Acute Reason for Visit Reason for Visit: POSSIBLE HIP FRACTURE Hospital Course Hospital Course As per Dr. Pagan: Cira Barney is a 70 year old female with past medical history of restless leg syndrome who fell after her leg gave way. Noted to have left lower extremity pain afterwards. No head trauma, no chest pain or dyspnea. no fever or chills. Found to have a left hip fx on arrival. Course: Patient presented with a pathologic fracture of left femur. She underwent internal fixation on August 10, 2021. Bone sample from fracture was sent to pathology, result is pending. CT chest abdomen pelvis was also done to rule out underlying malignancy due to patient's history of breast cancer.CT chest abdomen pelvis shows endometrial thickening and increased soft tissue near the endocervical junction. Ultrasound and transvaginal imaging highly recommended to exclude malignancy. I will refer her to driver license reviewing officer at discharge for further work-up. I also discussed her case with Dr. Masoud Aleman over the phone who is her primary care doctor. I have made him aware of her CT scan results and the bone biopsy. I will send a copy of his discharge summary to Masoud Aleman. Patient will be discharged on Eliquis 2.5 daily for DVT prophylaxis given her risk of history of malignancy and recent fracture repair. He is to see Dr. Ortiz in the clinic for staple removal in 2 weeks. Physical Exam Narrative: EXAM NARRATIVE: General: Alert oriented x3, patient seen sitting up in chair appearing very comfortable all picked up ready to go to rehab. Frail-appearing elderly female appearing cachectic. HEENT: Normocephalic, atraumatic, EOMI, Cardio: Regular rate rhythm, normal S1-S2, no murmurs rubs gallops, Respiratory: Good bilateral air entry, no wheezes no rhonchi appreciated GI: Abdomen soft, nontender, nondistended, bowel sounds + Behavior: Appropriate and cooperative Extremities: Pulses 2+, no edema, no cyanosis. Patient able to bear weight on her leg. Urinary Catheter Management^: Randolph: Cath Placed During This Visit: no Reason for Continuing Indwelling Catheter: Required Immobilization for Trauma or Surgery or Anesthesia Discharge Data Data Completed and Pending: Completed Studies During Hospitalization Category Date Time Status CT chest abd pel w con* Routine Cat Scan 08/11/21 07:56 Completed XR chest 1V vicky ble [id number] Stat Exams 08/09/21 17:56 Completed XR femur LT min 2 V* [id number] Routine Exams 08/10/21 Completed XR femur LT min 2 V* [id number] Stat Exams 08/09/21 17:56 Completed XR pelvis 1-2V* 7 [id number] Stat Exams 08/09/21 17:56 Completed Pending at discharge Category Date Time Status Immunochemical Fe zaynab OCB Routine Lab 08/11/21 07:58 Uncollected Pathology: Surgic al [PTH] Routine Pth 08/10/21 14:02 Received Labs from last 24 hours 08/12/21 08/12/21 08/12/21 05:10 05:10 05:10 WBC 8.2 RBC 3.80 L Hgb 11.9 Hct 35.8 L MCV 94.2 MCH 31.3 MCHC 33.2 RDW 13.7 Plt Count 203 MPV 12.1 H Neut % (Auto) 77.0 Lymph % (Auto) 15.0 Harlan % (Auto) 7.1 Eos % (Auto) 0.6 Baso % (Auto) 0.2 Neut # (Auto) 6.27 Lymph # (Auto) 1.2 Harlan # (Auto) 0.6 Eos # (Auto) 0.1 Baso # (Auto) 0.0 Nucleated RBC % (a uto) 0 Nucleated RBCs # 0.0 Sodium 131 L Potassium 3.5 Chloride 99 Carbon Dioxide 24 Anion Gap 11.5 BUN 17 Creatinine 0.3 L GFR Calculation Not Reportable Glucose 110 Calculated Osmolal ity 274 L Calcium 8.0 L PTH Intact 22.0 Calcium (PTH Intac t) 7.9 L SARS-CoV-2 Ag (Rap id) 08/11/21 17:15 WBC RBC Hgb Hct MCV MCH MCHC RDW Plt Count MPV Neut % (Auto) Lymph % (Auto) Harlan % (Auto) Eos % (Auto) Baso % (Auto) Neut # (Auto) Lymph # (Auto) Harlan # (Auto) Eos # (Auto) Baso # (Auto) Nucleated RBC % (a uto) Nucleated RBCs # Sodium Potassium Chloride Carbon Dioxide Anion Gap BUN Creatinine GFR Calculation Glucose Calculated Osmolal ity Calcium PTH Intact Calcium (PTH Intac t) SARS-CoV-2 Ag (Rap id) Negative Vitals: Last Vital Signs Temp 99.4 F 08/12/21 08:00 Pulse 98 08/12/21 08:00 Resp 18 08/12/21 08:00 BP 146/73 08/12/21 08:00 Pulse Ox 94 08/12/21 08:00 Discharge Plan Discharge Patient Disposition: Xfer SNF Condition: Stable Prescriptions: New hydrocodone-acetaminophen 5-325 mg Tablet 1 tab PO Q4H PRN (Reason: Moderate Pain) 7 Days Qty: 30 RF: 0 Eliquis 5 mg Tablet 2.5 mg PO BID@0900,2100 30 Days Qty: 60 RF: 0 Continued ropinirole 0.5 mg tablet 0.5 mg PO BEDTIME RF: 0 Discharge Orders: Discharge Order (Routine); Ordered 08/12/21 Ordered By: Garrett Ortiz Other Ambulatory Orders: DME: Walker (Order) Location: None Selected Ordered By: Armida Rosado Referrals: Garrett Ortiz MD [Physician] - 08/31/21 2:30 pm Discharge Diet: Advance as tolerated Discharge Activity: Limit activity as instructed Patient Instructions: Opioid Safety Activity Restrictions/Additional Instructions: May weight-bear as tolerated left lower extremity Change dressing as needed for drainage May shower or bathe when incision free of drainage Discharge Attestations Time Spent in Discharge Care*: less than 30 min Status at Discharge: Cognitive status at discharge: cognitively intact, Behavioral status at discharge: cooperative, Overall status at discharge: patient is progressing back to baseline Quality Metrics Clinical Quality Measures During this hospital stay, did patient experience: None Coding Level of Care Code Acute g FW DC note Diagnoses Pathological fracture, left femur, initial encounter for fracture M84.452A Postoperative state Z98.890
[2021-08-12 14:05] VITALS: BP 146/73; PULSE 98; RESP 18; TEMP 37.4; O2SAT 94
--- NOTE | 2021-08-15 15:55 | PC.SOCIAL ---
discharge follow up call made, spoke with Lucy, patients nurse at [facility]. she reports pt is doing well, working with therapy, is able to use her walker and bear weight to left lower extremity. patient is taking eliquis and hydrocodone as directed with pain relief. Lucy given patients follow up appointment date and time with Dr. Ortiz 08-31.
--- NOTE | 2021-09-05 11:12 | PM.MISC ---
Miscellaneous Note Purpose of Documentation: Called PCP to inform them of the pathology report. Dr. Aleman stated that patient already has been setup with oncology and was diagnosed with Anal Cancer. Patient is getting the required follow ups.
== END 2021-08-12 14:06 | disposition swing bed (61) | DRG 479 ==
LOC: ER 19:49 → MEDSURG 21:54
PROVIDERS: Family Medicine; Orthopaedic Surgery; Admitting Provider Hospitalist; Emergency Provider Emergency Medicine; PCP Nurse Practitioner Family; Visit Provider Internal Medicine
PROC: 0QB70ZX Excision of Left Upper Femur, Open Approach, Diagnostic (ICD-10-PCS; CPT 27245; principal; 2021-08-10 11:50)
DX: M84.452A Pathological fracture, left femur, initial encounter for fracture (principal); G25.81 Restless legs syndrome; R93.89 Abnormal findings on diagnostic imaging of other specified body structures; R53.83 Other fatigue; R63.4 Abnormal weight loss; K64.4 Residual hemorrhoidal skin tags; Z68.22 Body mass index [BMI] 22.0-22.9, adult; Z85.3 Personal history of malignant neoplasm of breast; Z92.21 Personal history of antineoplastic chemotherapy; Z92.3 Personal history of irradiation; Z86.16 Personal history of COVID-19
CPT/HCPCS: 36415; 51702; 71045; 71260; 72170; 73552; 74177; 76000; 80048; 80053; 81001; 82310; 83735; 83970; 85025; 85610; 85730; 87426; 88304; 88311; 93005; 96372; 96374; 97116; 97161; 97165; 97530; 97535; 99285; C1713; J0690; J1170; J1650; J2270; J2370; J2405; J2704; J3010; J3475; J7030; Q9967